=== PATIENT | female | born 1930 | race Caucasian/White ===

== ENCOUNTER 2016-08-20 14:44 | Inpatient (IN) | payer OTHER ==
[~2016-08-20] VITALS: Ht 160 cm; Wt 68.0 kg
[2016-08-20 14:49] VITALS: BP 206/84
[2016-08-20 15:33] LABS: HEMATOCRIT 38.6 % (37.0-47.0); MCH 32.6 pg (26.0-34.0); MCHC 33.7 % (28.0-37.0); PLATELET COUNT 139 thou/uL (150-400); RBC 3.98 mil/uL (4.20-5.00); RDW 13.2 % (10.5-14.5)
[2016-08-20 15:35] LABS: CREATININE 1.1 mg/dL (0.6-1.3); MANUAL DIFF YES; POTASSIUM 4.3 mmol/L (3.5-5.1)
[2016-08-20 15:41] LABS: ALBUMIN 3.4 g/dL (3.4-5.0); TOTAL BILIRUBIN 0.5 mg/dL (<0.1-1.0); TOTAL PROTEIN 6.9 g/dL (6.4-8.2)
[2016-08-20 15:56] LABS: ABSOLUTE NEUTROPHILS 3.1 thou/uL (1.4-8.2); TOTAL CELL COUNT 100
[2016-08-20] MEDS ORDERED: LISINOPRIL20 MG PO (16:03)
[2016-08-20] MEDS ORDERED: LOPRESSOR25 PO (16:03)
[2016-08-20] MEDS ORDERED: ASPIR 8181 MG PO (16:04)
[2016-08-20] MEDS ORDERED: ZOCOR20 MG PO (16:04)
[2016-08-20] MEDS ORDERED: PLAVIX 75 MG TA75 M1 PO (16:04)
[2016-08-20] MEDS ORDERED: FISH OIL 1,001000 M2 PO (16:05)
[2016-08-20] MEDS ORDERED: TUMS PO (16:05)
[2016-08-20] MEDS ORDERED: MULTI VITAMIN1 EACH PO (16:06)
[2016-08-20] MEDS ORDERED: LUTEIN40 MG PO (16:07)
[2016-08-20 16:08] LABS: URINE BILIRUBIN NEGATIVE (Negative); URINE BLOOD NEGATIVE (Negative); URINE COLOR YELLOW; URINE GLUCOSE-RANDOM* NEGATIVE (Negative); URINE KETONES NEGATIVE (Negative); URINE LEUKOCYTES-REFLEX NEGATIVE (Negative); URINE PROTEIN (DIPSTICK) NEGATIVE (Negative); URINE UROBILINOGEN 0.2 E.U./dl (0.2-1.0)
[2016-08-20] MEDS ORDERED: OXYBUTYNIN 5 MG5 M2 PO (16:08)
[2016-08-20] MEDS ORDERED: MIRALAX17 G1 PO (16:09)
[2016-08-20] MEDS ORDERED: MELATONIN3 MG PO (16:09)
[2016-08-20] MEDS ORDERED: SYSTANE 0.3-0.1 EACH OP (16:09)
[2016-08-20] MEDS ORDERED: VITAMIN E400 UNIT PO (16:29)
[2016-08-20 17:31] VITALS: BP 183/78
[2016-08-20 18:00] VITALS: BP 183/84
[2016-08-20 19:16] VITALS: BP 187/69
[2016-08-21 03:36] VITALS: BP 160/65
[2016-08-21 06:05] LABS: POTASSIUM 3.8 mmol/L (3.5-5.1)
[2016-08-21 06:15] LABS: HEMOGLOBIN 11.9 gm/dL (12.0-15.0); MCH 32.9 pg (26.0-34.0); MCHC 33.9 % (28.0-37.0); MCV 96.9 fL (80.0-100.0); RBC 3.61 mil/uL (4.20-5.00); RDW 13.1 % (10.5-14.5)
[2016-08-21 08:00] VITALS: BP 187/85
[2016-08-21 12:45] VITALS: BP 215/95
[2016-08-21 16:26] VITALS: BP 174/77
[2016-08-21 19:20] VITALS: BP 163/68
[2016-08-22 07:37] VITALS: BP 178/71
[2016-08-22] MEDS ORDERED: CIPRO500 MG PO (11:41)
[2016-08-22] MEDS ORDERED: FLAGYL500 MG PO (11:42)
[2016-08-22 12:44] VITALS: BP 178/71
[2016-08-22 12:54] VITALS: BP 178/71
[2016-08-22] MEDS ORDERED: NORVASC10 MG PO (13:37)
== END 2016-08-22 14:00 | disposition home or self-care (01) | DRG 392 ==
LOC: ER 14:44 → EROBS 16:40 → 4N 17:29
PROVIDERS: Emergency Medicine; Hospitalist
DX: K52.9 Noninfective gastroenteritis and colitis, unspecified (principal); N17.9 Acute kidney failure, unspecified; I10 Essential (primary) hypertension; Z96.653 Presence of artificial knee joint, bilateral; Z96.1 Presence of intraocular lens; E86.0 Dehydration; E78.5 Hyperlipidemia, unspecified; Z93.3 Colostomy status; Z98.890 Other specified postprocedural states
CPT/HCPCS: 10091

== ENCOUNTER 2016-08-23 11:06 | Emergency (ER) | payer OTHER ==
[~2016-08-23] VITALS: Ht 160 cm; Wt 68.0 kg
--- NOTE | ~2016-08-23 | EKG ---
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
[~2016-08-23 11:06] MED LIST: ASPIR 8181 MG PO; CIPRO500 MG PO; FISH OIL 1,001000 M2 PO; FLAGYL500 MG PO; LISINOPRIL20 MG PO; LOPRESSOR25 PO; LUTEIN40 MG PO; MELATONIN3 MG PO; MIRALAX17 G1 PO; MULTI VITAMIN1 EACH PO; NORVASC10 MG PO; OXYBUTYNIN 5 MG5 M2 PO; PLAVIX 75 MG TA75 M1 PO; SYSTANE 0.3-0.1 EACH OP; TUMS PO; VITAMIN E400 UNIT PO; ZOCOR20 MG PO
[2016-08-23 12:19] LABS: ABSOLUTE NEUTROPHILS 4.6 thou/uL (1.4-8.2); BASOPHILS 0.5 % (0.0-2.0); EOSINOPHILS 1.1 % (0.0-3.0); HEMATOCRIT 36.5 % (37.0-47.0); HEMOGLOBIN 12.5 gm/dL (12.0-15.0); LYMPHOCYTES 13.5 % (24.0-44.0); MCH 32.8 pg (26.0-34.0); MCHC 34.3 % (28.0-37.0); MCV 95.4 fL (80.0-100.0); MONOCYTES 8.8 % (1.0-8.0); PLATELET COUNT 170 thou/uL (150-400); POLYS 76.1 % (36.0-66.0); RBC 3.83 mil/uL (4.20-5.00); RDW 12.8 % (10.5-14.5); WBC 6.1 thou/uL (4.0-11.0)
[2016-08-23 12:26] LABS: ANION GAP 10 mmol/L (7-16); BUN 13 mg/dL (7-18); CALCIUM 8.3 mg/dL (8.5-10.1); CHLORIDE 105 mmol/L (98-107); CO2 27 mmol/L (21-32); CREATININE 1.4 mg/dL (0.6-1.3); GLUCOSE 166 mg/dL (70-99); POTASSIUM 3.3 mmol/L (3.5-5.1); SODIUM 142 mmol/L (136-145)
[2016-08-23 12:27] LABS: MANUAL DIFF NO
[2016-08-23 12:31] LABS: ALKALINE PHOSPHATASE 58 U/L (46-116); SGOT 34 U/L (15-37); SGPT 35 U/L (30-65); TOTAL BILIRUBIN 0.5 mg/dL (<0.1-1.0); TOTAL PROTEIN 6.1 g/dL (6.4-8.2); TROPONIN-I < 0.04 ng/mL (<0.04-0.07)
== END 2016-08-23 14:24 | disposition home or self-care (01) ==
LOC: ER 11:06
PROVIDERS: Emergency Medicine
DX: R55 Syncope and collapse (principal); E86.0 Dehydration; I10 Essential (primary) hypertension; Z87.19 Personal history of other diseases of the digestive system; Z98.890 Other specified postprocedural states

== ENCOUNTER 2017-02-20 14:01 | Emergency (ER) | payer OTHER ==
[~2017-02-20] VITALS: Ht 157.5 cm; Wt 71.2 kg
--- NOTE | ~2017-02-20 | EKG ---
[address] [place] [address] ELECTROCARDIOGRAM REPORT Name: DIANA BROWN Room #: DEP [facility]#: [id number] Admission: 02/20/17 Attend Phys: Discharge: 02/20/17 Date of : 31 Report #: [id number] THIS REPORT FOR: //name// [facility] ED Test Date: 2017-02-20 Test Time: 14:33:31 Pat Name: DIANA BROWN Department: Room: Gender: F Coo: CRYSTAL : 1930 Requested By: Art Vasquez Order Number: [id number] MD: Joshua Beach Measurements Intervals [place] Rate: 64 P: 44 CT: 193 QRS: -18 QRSD: 96 T: 52 QT: 413 QTc: 426 Interpretive Statements Sinus rhythm Borderline left axis deviation Compared to ECG 08/23/2016 11:19:19 Atrial premature complex(es) no longer present Electronically Signed On 02-21-2017 9:24:39 CDT by Joshua Beach [email or web address] <ELECTRONICALLY SIGNED> By: Joshua Beach MD, [facility] 02/21/17 0924 1433 1433 Joshua Beach MD, [facility] /EPI
[2017-02-20 14:59] LABS: HEMATOCRIT 35.9 % (37.0-47.0); HEMOGLOBIN 12.4 gm/dL (12.0-15.0); MCH 33.8 pg (26.0-34.0); MCHC 34.5 g/dL (28.0-37.0); RBC 3.66 mil/uL (4.20-5.00); RDW 13.1 % (10.5-14.5)
[2017-02-20 15:08] LABS: ANION GAP 6 mmol/L (7-16); BUN 31 mg/dL (7-18); CALCIUM 8.7 mg/dL (8.5-10.1); CHLORIDE 107 mmol/L (98-107); CO2 28 mmol/L (21-32); CREATININE 1.2 mg/dL (0.6-1.0); GLUCOSE 120 mg/dL (74-106); POTASSIUM 4.7 mmol/L (3.5-5.1); SODIUM 141 mmol/L (136-145)
[2017-02-20 15:16] LABS: TROPONIN-I < 0.04 ng/mL (<0.04-0.07)
[2017-02-20 15:20] LABS: APTT 22.6 Seconds (24.5-32.8); PROTIME 10.8 Seconds (9.3-11.4)
== END 2017-02-20 17:58 | disposition home or self-care (01) ==
LOC: ER 14:01
PROVIDERS: Emergency Medicine
DX: R42 Dizziness and giddiness (principal); R47.81 Slurred speech; I10 Essential (primary) hypertension; Z90.49 Acquired absence of other specified parts of digestive tract; Z96.653 Presence of artificial knee joint, bilateral

== ENCOUNTER 2019-01-13 11:28 | Emergency (ER) | payer OTHER ==
[~2019-01-13] VITALS: Ht 160 cm; Wt 70.3 kg
[2019-01-13 11:41] LABS: ABSOLUTE NEUTROPHILS 3.4 thou/uL (1.4-8.2); BASOPHILS 1.1 % (0.0-2.0); EOSINOPHILS 3.1 % (0.0-3.0); HEMATOCRIT 33.8 % (37.0-47.0); HEMOGLOBIN 11.6 gm/dL (12.0-15.0); LYMPHOCYTES 22.8 % (24.0-44.0); MCHC 34.4 g/dL (28.0-37.0); MCV 96.2 fL (80.0-100.0); MONOCYTES 8.9 % (1.0-8.0); PLATELET COUNT 161 thou/uL (150-400); POLYS 64.1 % (36.0-66.0); RBC 3.51 mil/uL (4.20-5.00); RDW 13.7 % (10.5-14.5); WBC 5.4 thou/uL (4.0-11.0)
[2019-01-13 11:45] LABS: URINE BILIRUBIN NEGATIVE (Negative); URINE BLOOD NEGATIVE (Negative); URINE CLARITY CLEAR; URINE COLOR YELLOW; URINE GLUCOSE-RANDOM* NEGATIVE (Negative); URINE KETONES NEGATIVE (Negative); URINE LEUKOCYTES TRACE (Negative); URINE NITRITE NEGATIVE (Negative); URINE PROTEIN (DIPSTICK) 2+ (Negative); URINE SPECIFIC GRAVITY 1.015 (1.005-1.035); URINE UROBILINOGEN 0.2 E.U./dl (0.2-1.0)
[2019-01-13 11:46] LABS: CALCIUM 9.3 mg/dL (8.5-10.1); CREATININE 1.4 mg/dL (0.6-1.0); POTASSIUM 4.4 mmol/L (3.5-5.1)
[2019-01-13 11:52] LABS: ALBUMIN 3.5 g/dL (3.4-5.0); TOTAL BILIRUBIN 0.5 mg/dL (<0.1-1.0); TOTAL PROTEIN 6.4 g/dL (6.4-8.2)
[2019-01-13 11:57] LABS: HYALINE CASTS 0-3 Few /LPF (None Seen)
[2019-01-13 11:58] LABS: AMORPHOUS URATES Few /LPF (None Seen); SQUAMOUS None Seen /LPF (0-3); URINE RBC 3-10 Few /HPF (0-2)
[2019-01-13 11:59] LABS: BACTERIA 1-9 Few /HPF (None Seen); URINE WBC 0-5 Rare /HPF (0-5)
[2019-01-13 15:25] VITALS: BP 140/77
--- NOTE | 2019-01-15 08:38 | EKG ---
[address] [address] ELECTROCARDIOGRAM REPORT Name: STEPHANIEDIANA Paulette Room #: DEP [facility]#: [id number] ������������������ Admission: 01/13/19 ������������������ Attend Phys: Discharge: 01/13/19 ������������������ Date of : 31 Report #: [id number] ����������������������������������������������������������������� [id number] THIS REPORT FOR: //name// [facility] ED Test Date: 2019-01-13 Test Time: 11:33:00 Pat Name: DIANA BROWN Department: Room: Gender: F [employer]: WG : 1930 Requested By: Fatimah Gonsalves Order Number: [id number] MD: Lex Zapata Measurements Intervals [place] Rate: 60 P: -23 NM: 207 QRS: -24 QRSD: 85 T: 43 QT: 409 QTc: 409 Interpretive Statements Sinus rhythm Left ventricular hypertrophy Compared to ECG 02/20/2017 14:33:31 Left ventricular hypertrophy now present Electronically Signed On 01-15-2019 8:38:14 CDT by Lex Zapata [email or web address] ��������������������������������������������� <ELECTRONICALLY SIGNED> ���������������������������������������� By: Lex Zapata MD ��������������������������������������������� 01/15/19 0838 113 113 Lex Zapata MD /JOSE
== END 2019-01-13 15:25 | disposition home or self-care (01) ==
LOC: ER 11:28
PROVIDERS: Emergency Medicine
DX: I95.1 Orthostatic hypotension (principal); I10 Essential (primary) hypertension; Z90.49 Acquired absence of other specified parts of digestive tract; Z96.653 Presence of artificial knee joint, bilateral

== ENCOUNTER 2019-04-15 12:48 | Inpatient (IN) | payer OTHER ==
[~2019-04-15] VITALS: Ht 162.6 cm; Wt 68.7 kg
--- NOTE | ~2019-04-15 | EMS ---
[facility] [address] [place] [address] EMS Patient Care Report Name: DIANA BROWN Room #: PRE M.R.#: [id number] Admission: Attend Phys: Discharge: Date of : 31 Report #: [id number] THIS REPORT FOR: //name// Report Transmitted: 04/15/2019 12:34 EMS Care Summary [facility] MED-ACT Incident [id number] @ 04/15/2019 12:08 Incident Location [address] [place] [address] Patient DIANA BROWN Female, 89 Years 1930 Patient Address [address] [place] [address] Patient History Other,Dementia,Hypertension,Hyperlipidemia, Patient Allergies No known allergies, Patient Medications Simvastatin, Hydroxyzine, Oxybutynin, Plavix, Meloxicam, Lisinopril, Melatonin, Metoprolol, Chief Complaint "My legs gave out on me" Disposition Transported No Lights/[place] Dispatch Reason Stroke/CVA Transported To [facility] Narrative Patient's daughter reports that she and the patient had just returned from picking up a pizza for lunch and were trying to get back into the house from the car in the garage. Patient's daughter and the patient report that the [facility] [address] [place] [address] EMS Patient Care Report Name: DIANA BROWN Room #: PRE [place]#: [id number] Admission: Attend Phys: Discharge: Date of : 31 Report #: [id number] patient has been undergoing physical therapy for the last 3-4 weeks to gain strength and deal with balance issues. Patient's daughter reports she was helping the patient up the 3 steps from the garage into the house when the patient suddenly c/o weakness in her legs. Patient's daughter reports that the patient's legs gave out and the daughter attempted to lower the patient down to the ground. Both the patient and the daughter denied that the patient had an LOC. The patient reports that she bumped her mouth on the floor and c/o 2/10 upper lip pain. The patient's daughter reports that the patient has been on Plavix for 15 years "...because they thought the patient had a stroke but found no evidence of a stroke on the CT scan". The patient denied headache, dizziness, vision changes, neck and back pain, numbness/tingling to her extremities, chest pain/pressure/discomfort, difficulty breathing, nausea/vomiting/diarrhea, urinary or bowel issues and blood in her urine or stool. The patient's daughter requested ambulance transport for the patient to [facility] ER for further evaluation. Found this 89 y/o female patient lying prone on the floor in the doorway between the dining room and kitchen. The patient's head was resting on her hands on a pillow. The patient was a/o x 3. GCS 14 (confusion normal for patient per the patient's daughter). The patient's skin was warm, dry and slightly pale. Patient's radial pulse was strong and regular. No obvious deformities, crepitus or tenderness were palpated to the patient's head, neck or back. The patient was assisted in rolling over onto her left side and sitting upright on the floor. M1134 assisted the patient up to a sitting position on the floor, then a standing position, and then to a chair. Patient's upper lip was swollen and bruised on the left side. No slurred speech or facial droop noted. Patient was noted to have blood in her mouth. Patient's teeth were intact. Patient had weak but equal target trimmer strength. Negative arm drift. Sinus Rhythm on the monitor. The patient was assisted to a standing position and helped to walk around the dining room table to the stretcher. Patient was placed in a semi-fowlers position, secured with seat belts and moved to the MICU. Patient's bG was 96mg/dL via finger stick. No ST changes noted on the patient's 12 lead. Monitored the patient's vitals and ECG. No changes noted en route to [facility]. Upon arrival at [facility], the patient was taken to ER #2 and moved via draw sheet to the ER bed by M1134 and staff. Report and paperwork TOT staff at the patient's bedside. Initial Vitals @12:37P: 66,R: 18,Pain: 2/10,SpO2: 100, @12:19BP: 246/110,Pain: 2/10,GCS: 14, @12:28P: 68,R: 18,BP: 203/107,Pain: 2/10,GCS: 14,Glucose: 96,Revised Trauma: 12,DC Suspected: false @12:16P: 71,R: 16,BP: 248/111,Pain: 2/10,GCS: 14,SpO2: 96,Revised Trauma: 12, @12:18P: 67,R: 18,BP: 248/111,Pain: 2/10,GCS: 14,Revised Trauma: 12,[facility] [address] [place] [address] EMS Patient Care Report Name: DIANA BROWN Room #: PRE [place].#: [id number] Admission: Attend Phys: Discharge: Date of : 31 Report #: [id number] Suspected: false @12:31P: 68,R: 18,Pain: 2/10,GCS: 15,SpO2: 100,DC Suspected: false @12:42P: 67,R: 18,BP: 200/105,Pain: 2/10,GCS: 15,SpO2: 100,Revised Trauma: 12, Assessments @12:14MENTAL:Person Oriented,Time Oriented,Place Oriented,SKIN:Pale,HEENT:Head/Face: Swelling,Neck/Airway: No Abnormalities,LUNG SOUNDS:ABDOMEN:PELVIS//GI:No Abnormalities,EXTREMITIES:Capillary Refill: Left Upper: < 2 Sec,Left Arm: No Abnormalities,Right Arm: No Abnormalities,Left Leg: No Abnormalities,Right Leg: No Abnormalities,PULSE:Radial: 2+ Normal,NEURO:Weakness Right-Sided,Weakness Left-Sided, Impression Generalized Weakness Procedures @12:3112-Lead ECGResponse: UnchangedSucceeded Timeline 12:08,Call Received 12:08,Psap Call 12:08,Dispatched 12:09,En Route 12:12,On Scene 12:13,At Patient 12:16,BP: 248/111 M,PULSE: 71,RR: 16 R,SPO2: 96 Ox,ETCO2: ,BG: ,PAIN: 2,GCS: 14, 12:18,BP: 248/111 M,PULSE: 67,RR: 18 R,SPO2: Ox,ETCO2: ,BG: ,PAIN: 2,GCS: 14, 12:19,BP: 246/110 M,PULSE: ,RR: R,SPO2: Ox,ETCO2: ,BG: ,PAIN: 2,GCS: 14, 12:28,BP: 203/107 M,PULSE: 68,RR: 18 R,SPO2: Ox,ETCO2: ,B,PAIN: 2,GCS: 14, 12:31,12-Lead ECG,Response: UnchangedSucceeded, 12:31,BP: / M,PULSE: 68,RR: 18 R,SPO2: 100 Ox,ETCO2: ,BG: ,PAIN: 2,GCS: 15, 12:36,Depart Scene 12:37,BP: / M,PULSE: 66,RR: 18 R,SPO2: 100 Ox,ETCO2: ,BG: ,PAIN: 2,GCS: , 12:42,BP: 200/105 M,PULSE: 67,RR: 18 R,SPO2: 100 Ox,ETCO2: ,BG: ,PAIN: 2,GCS: 15, 12:44,At Destination 13:35,Call Closed Disclaimer v1.1 Copyright 2019 [employer] This EMS Care Summary contains data elements from the applicable legal record (which may be displayed differently). It is designed to provide pertinent information for the following purposes: continuity of care, clinical quality, and state data reporting. The complete legal record is available to ED staff [address] [address] EMS Patient Care Report Name: DIANA BROWN Paulette Room #: PRE [facility].R.#: [id number] Admission: Attend Phys: Discharge: Date of : 31 Report #: [id number] and administrators of the receiving hospital in [facility]'s Patient Tracker. All data is provided "as is."
[2019-04-15 12:50] VITALS: BP 192/88
[2019-04-15 13:24] LABS: URINE BILIRUBIN NEGATIVE (Negative); URINE BLOOD NEGATIVE (Negative); URINE CLARITY CLEAR; URINE COLOR YELLOW; URINE GLUCOSE-RANDOM* NEGATIVE (Negative); URINE KETONES NEGATIVE (Negative); URINE LEUKOCYTES-REFLEX NEGATIVE (Negative); URINE NITRITE-REFLEX NEGATIVE (Negative); URINE PROTEIN (DIPSTICK) NEGATIVE (Negative); URINE UROBILINOGEN 0.2 E.U./dl (0.2-1.0)
[2019-04-15 13:26] LABS: ABSOLUTE NEUTROPHILS 5.9 thou/uL (1.4-8.2); BASOPHILS 0.6 % (0.0-2.0); EOSINOPHILS 2.6 % (0.0-3.0); HEMATOCRIT 32.5 % (37.0-47.0); HEMOGLOBIN 11.1 gm/dL (12.0-15.0); LYMPHOCYTES 14.8 % (24.0-44.0); MCH 33.8 pg (26.0-34.0); MCHC 34.1 g/dL (28.0-37.0); MCV 99.1 fL (80.0-100.0); MONOCYTES 7.9 % (1.0-8.0); PLATELET COUNT 193 thou/uL (150-400); POLYS 74.1 % (36.0-66.0); RBC 3.28 mil/uL (4.20-5.00); RDW 14.1 % (10.5-14.5)
[2019-04-15 13:33] LABS: ANION GAP 9 mmol/L (7-16); BUN 35 mg/dL (7-18); CALCIUM 8.9 mg/dL (8.5-10.1); CHLORIDE 101 mmol/L (98-107); CO2 26 mmol/L (21-32); CREATININE 1.3 mg/dL (0.6-1.0); GLUCOSE 100 mg/dL (74-106); POTASSIUM 4.6 mmol/L (3.5-5.1); SODIUM 136 mmol/L (136-145)
[2019-04-15 13:43] LABS: ALBUMIN 3.5 g/dL (3.4-5.0); DIRECT BILIRUBIN < 0.1 mg/dL (<0.1-0.3); SGOT 22 U/L (15-37); SGPT 23 U/L (30-65); TOTAL BILIRUBIN 0.5 mg/dL (<0.1-1.0); TOTAL PROTEIN 6.6 g/dL (6.4-8.2); TROPONIN-I <0.06 ng/mL (<0.06)
[2019-04-15 14:56] VITALS: BP 167/62
[2019-04-15 15:12] VITALS: BP 160/76
[2019-04-15 16:00] VITALS: BP 182/69
[2019-04-15 19:38] VITALS: BP 197/76
[2019-04-15 23:44] VITALS: BP 192/82
[2019-04-16] VITALS (8 sets, daily range): BP systolic 141–184; BP diastolic 61–87
--- NOTE | 2019-04-16 01:12 | NUR ---
ASSUMED PT CARE 1899. PT ALERT AND ORIENTED, CAN BE FORGETFUIL. RESASSESSMENT COMPLETE. BLOOD PRESSURE ELEVATED, SEE EMAR. ALL OTHER VSS. DENIES PAIN. DENIES N/V. CALL LIGHT AND PERSONAL BELONIGNS WITHIN REACH, WILL CONTINUE POC UTNIL EOS.
[2019-04-16 05:34] LABS: HEMATOCRIT 28.4 % (37.0-47.0); HEMOGLOBIN 9.8 gm/dL (12.0-15.0); MCH 33.7 pg (26.0-34.0); MCHC 34.7 g/dL (28.0-37.0); MCV 97.2 fL (80.0-100.0); RBC 2.93 mil/uL (4.20-5.00); RDW 14.6 % (10.5-14.5); WBC 6.1 thou/uL (4.0-11.0)
[2019-04-16 05:52] LABS: CALCIUM 8.7 mg/dL (8.5-10.1); CREATININE 1.1 mg/dL (0.6-1.0); POTASSIUM 4.6 mmol/L (3.5-5.1)
[2019-04-16 09:59] LABS: TSH 3.111 uIU/mL (0.358-3.740)
--- NOTE | 2019-04-16 20:23 | NUR ---
care of pt assumed this am @ ~0700. pt noted to be awake, happy and engaging w/ staff today. pt aox4, but forgetful. pt a fall risk and aware of (compliant w/) need to call staff for assistance to chair, bsc and ambulation. pt w/ a balanced, coordinated and unsteady gait. pt w/ a fair to goo appetite for food and fluid today. ivf's infusing to a positional iv access to the lt ac, redressed and resecured several times today. pt voiding per bsc. pt had placement of a loop recorder by dr. iglesias today, betty to lt of midsternum, small 2x2 gauze w/ faint sanguanious drainage covered w/ a opsite. st judes to come educate pt and her daughter/Darby tomorrow regard device. pt was up in her chair for most of the day watching tv, visiting w/ her daughter and sleeping.
[2019-04-17 03:54] VITALS: BP 168/69
--- NOTE | 2019-04-17 04:15 | NUR ---
Pt. able to answer orientation questions though she has periods of being forgetful. Denies any pain. She stated she has intermittent tingling and weakness on her lower extremities. Bed alarm on for safety. She calls appropriately for assistance. Assisted up to commode using walker and gait belt. Left AC IV infiltrated ,dc'd and placed a new one on right FA. Will continue to monitor.
[2019-04-17 07:53] VITALS: BP 197/87
--- NOTE | 2019-04-17 09:05 | EKG ---
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
--- NOTE | 2019-04-17 13:38 | LINQ ---
[facility] [address] [place] [address] MyPronosticQ PROCEDURE REPORT Name: DIANA BROWN Paulette Room #: 363-P [facility] IN ..#: [id number] Admission: 04/15/19 Attend Phys: Gil Knott MD Discharge: Date of : 31 Date of Service: 04/17/19 1338 Report #: [id number] THIS REPORT FOR: //name// APPROVED REPORT Study performed: 04/17/2019 08:19:28 Patient Status: In-Patient Room #: Event Personnel: MD Esther Kennedy RN Exam: Loop Recorder Implant Indications: 89-year-old female with recurrent near-syncope Implanted Devices: [employer]: Device-CONFIRM Rx; Reference #[id number]; SN: [id number]; Use by 2020-08-25 Procedure The patient underwent informed consent. We discussed the details of the procedure including the risks, which include, but not limited to bleeding, infection, vascular damage, cardiac perforation, and pneumothorax. The patient's chest was prepped and draped in usual sterile manner. Utilizing 1% lidocaine the incision site was then anesthetized as well as a deployment track underneath the skin. Utilizing the enclosed tool small skin make was performed and using sharp and blunt dissection a pocket was generated. The device was then inserted and deployed percent of protocol. Subcutaneous tissue was then sewn with a simple interrupted suture over the entry point. The skin was sutured with a 30 absorbable suture in a subcuticular stitch. Steri-Strips 4 x [address] Patient had a procedure well. Complications The patient tolerated the procedure well and there were no complications associated with the procedure. Findings Specimens Removed: No Estimated Blood Loss: 0 Conclusion 1. Successful deployment of a [employer] implantable loop recorder [address] [address] LINQ PROCEDURE REPORT Name: DIANA BROWN Room #: 363-P [facility] IN .#: [id number] Admission: 04/15/19 Attend Phys: Gil Knott MD Discharge: Date of : 31 Date of Service: 04/17/19 1338 Report #: [id number] Recommendations 1. Will proceed per standard post insertion protocol and monitoring <ELECTRONICALLY SIGNED> By: Toni John MD 04/17/19 1338 37 Toni John MD /INF
--- NOTE | 2019-04-17 14:03 | NUR ---
dp faxed snf referral to [facility] and to [facility], dp spoke with Teresa at [facility] and she is coming up to hospital soon, dp left message with Nicolasa at [facility]. Patient to dc tomorrow.
[2019-04-17 14:38] VITALS: BP 156/68
--- NOTE | 2019-04-17 14:48 | NUR ---
INITIAL ASSESSMENT: SW reviewed chart and opened case due to length of stay. Pt was admitted from home due to weakness. Recommendation made for pt to go to post-acute for continued rehab services and medical mgmt. JOSEPH met [facility] pt and dtr, Darby, at bedside. Introduced role of JOSEPH. Pt is alert/orientated x 4 and normally lives at home. Prior to admission, pt was using a walker to assist with ambulation. No hx of services. Pt has been to [facility] in the past. SW provided SNF list. Pt and dtr requests referrals to be sent to [facility] and [facility] SNF. Pt and dtr are agreeable with either facility. Discharge is anticipated in 1-2 days. Pt and dtr are aware of anticipated discharge timeframe. Pt's PCP is Dr. Alvarado. vacation planner to fax SNF referrals. SW is following to assist as needed with discharge planning.
--- NOTE | 2019-04-17 17:55 | NUR ---
PT WALKING TO TOILET WITH MOD ASSIST...SEEMS STRONGER...ENCOURAGED AMBULATION..
[2019-04-17 19:27] VITALS: BP 160/75
[2019-04-18 03:30] VITALS: BP 171/77
--- NOTE | 2019-04-18 03:43 | NUR ---
PATIENT IS ALERT AND ORIENTED. PATIENT IS ON ROOM AIR. PATIENTS LBM WAS THE 3RD. PATIENT IS NSR ON TELE. PATIENT IS SBA TO BATHROOM. PATIENT DENIES PAIN. PATEINT HAD LOOPRECORDER IMPLANTED YESTERDAY. PATIENT IS PENIDNG DISCHARGE TODAY. PATIENT IS RESTING COMFORTABLY IN BED. WCM. PATIENT IS PROGRESSING TO GOALS.
[2019-04-18 07:40] VITALS: BP 193/85
[2019-04-18 09:07] LABS: HEMATOCRIT 28.7 % (37.0-47.0); HEMOGLOBIN 9.8 gm/dL (12.0-15.0); MCH 33.9 pg (26.0-34.0); MCHC 34.2 g/dL (28.0-37.0); RBC 2.9 mil/uL (4.20-5.00); RDW 14.5 % (10.5-14.5); WBC 6.2 thou/uL (4.0-11.0)
[2019-04-18 09:11] LABS: CALCIUM 8.6 mg/dL (8.5-10.1); CREATININE 1.3 mg/dL (0.6-1.0); MAGNESIUM 2.2 mg/dL (1.8-2.4); POTASSIUM 4.2 mmol/L (3.5-5.1)
--- NOTE | 2019-04-18 11:37 | NUR ---
dp informed Nicolasa at [facility] to disregard referral as patient is going elswhere.
[2019-04-18 11:38] VITALS: BP 123/58
[2019-04-18] MEDS ORDERED: HYDRALAZINE 2525 MG PO (13:08)
--- NOTE | 2019-04-18 13:58 | NUR ---
DISCHARGE NOTE: SW reviewed chart and spoke with nursing and attending physician. Pt is medically stable for discharge to post-acute today. [facility] is able to accept pt. [facility] liaison spoke with pt's dtr via phone, who is agreeable with plan. SW met with pt at bedside to discuss discharge. Pt is aware and is in agreement. JOSEPH faxed discharge orders/summary to [facility] SNF and notified liaison. Wheelchair van transportation scheduled for 1500 per SNF's arrangements. Chart copy requested. funeral planner to notify pt's dtr of transportation time. No additional SW needs identified at this time, but is available to assist should needs arise.
--- NOTE | 2019-04-18 15:08 | NUR ---
ASSUMED PATIENT CARE AT 0700. A/O X4. UP AMBULATED IN ROOM WITH STB. DENIES PAIN. PROGRESSSING TOWARDS POC GOALS, DC TO SNF NOW.
[2019-04-19 15:07] LABS: GLOBULIN TOTAL 2.1 g/dL (2.2-3.9); M-SPIKE 0.1 g/dL (Not Observed)
== END 2019-04-18 15:26 | DRG 262 ==
LOC: ER 12:48 → EROBS 14:17 → 3W 14:17
PROVIDERS: Emergency Medicine; Internal Medicine; Psychiatry & Neurology Neurology; ADMIT Hospitalist
PROC: 0JH602Z Insertion of Monitoring Device into Chest Subcutaneous Tissue and Fascia, Open Approach (ICD-10-PCS; principal; 2019-04-17)
DX: I49.9 Cardiac arrhythmia, unspecified (principal); I10 Essential (primary) hypertension; E78.5 Hyperlipidemia, unspecified; Z96.653 Presence of artificial knee joint, bilateral; Z96.1 Presence of intraocular lens; S60.222A Contusion of left hand, initial encounter; S60.221A Contusion of right hand, initial encounter; N32.81 Overactive bladder; S00.93XA Contusion of unspecified part of head, initial encounter; W18.30XA Fall on same level, unspecified, initial encounter; K59.00 Constipation, unspecified; G47.00 Insomnia, unspecified; Z79.899 Other long term (current) drug therapy; Z79.82 Long term (current) use of aspirin; Z90.89 Acquired absence of other organs; Z93.3 Colostomy status; Y93.89 Activity, other specified; Y99.8 Other external cause status; Y92.094 Garage of other non-institutional residence as the place of occurrence of the external cause
CPT/HCPCS: 10879

== ENCOUNTER → 2019-05-22 | Outpatient (CLI) | payer OTHER ==
[~2019-05-22] MED LIST changes: +HYDRALAZINE 2525 MG PO
== END ==
LOC: CAT 07:49 → OCCUP 14:07 → CAT 14:09
DX: R30.0 Dysuria (principal); J34.2 Deviated nasal septum; I70.0 Atherosclerosis of aorta

== ENCOUNTER → 2020-03-03 | Outpatient (CLI) | payer OTHER | LOC: SJCVC 13:51 | PROVIDERS: ATTEND Internal Medicine | DX: R00.1 Bradycardia, unspecified (principal); I48.0 Paroxysmal atrial fibrillation; I10 Essential (primary) hypertension; E78.5 Hyperlipidemia, unspecified; Z86.73 Personal history of transient ischemic attack (TIA), and cerebral infarction without residual deficits; Z79.899 Other long term (current) drug therapy; Z82.49 Family history of ischemic heart disease and other diseases of the circulatory system ==

== ENCOUNTER 2020-08-08 16:23 | Emergency (ER) | payer OTHER ==
[~2020-08-08] VITALS: Ht 165.1 cm; Wt 74.8 kg
--- NOTE | ~2020-08-08 | EMS ---
[facility] [address] [place] [address] EMS Patient Care Report Name: DIANA BROWN Room #: REG [place]#: [id number] Admission: 08/08/20 Attend Phys: Discharge: Date of : 31 Report #: [id number] THIS REPORT FOR: //name// Report Transmitted: 08/08/2020 16:03 EMS Care Summary [facility] MED-ACT Incident [id number] @ 08/08/2020 15:52 Incident Location [address] [place] [address] Patient DIANA BROWN Female, 89 Years 1930 Patient Address [address] [place] [address] Patient History Hypertension (HTN),Pacemaker/AICD,Atrial Fibrillation, Patient Allergies No known allergies, Patient Medications Simvastatin, Metoprolol, Xarelto, Tylenol, Amiodarone, Irbesartan, Chief Complaint headache / not responding Disposition Transported No Lights/[place] Dispatch Reason Headache Transported To [facility] Narrative Pt is found laying generally supine in bed with family at side. Pt is in back bedroom with narrow a hallway and corners leading to pt. Pts family states approx 5-10 min prior to calling 911, pt c/o a sudden onset of a headache that started at the top of her head and radiated down the back of her head. Pts [address] [address] EMS Patient Care Report Name: DIANA BROWN Room #: REG [facility]#: [id number] Admission: 08/08/20 Attend Phys: Discharge: Date of : 31 Report #: [id number] family states they then took pt to her bedroom and placed her in bed prior to calling 911. Pts family states pt is normally AOx4. Pts family states pt has a hx of HTN and takes blood thinners. Pts family states pt was recently taken off her lisinopril Rx and placed on Irbesartan. Pts family states pt was also recently placed on amiodarone and recently had a pacemaker placed due to afib. On EMS arrival, pt will not communicate with EMS - pt will only open her eyes whenever her name was called, but would not speak. Pt would also not follow any of the commands to do a stroke scale. Pts family states pt has not expressed any further complaints/discomfort. Tx= VS, eJ=012, EKG/12lead-NSR, pt carried from bed to cot via tarp and secured without incident. En route= VS, BP timed out several times during transport, and pt kept her arms in a contracted position when BP cuff. During transport pt appeared to wretch like she was going to vomit - suction pts mouth x1 with no contents suctioned out, IV not established due to vasculature and arrival at hospital. During transport pt will continue to only open her eyes and look around when her name was called - pt would not follow any further commands - due to this stroke scale could not be completed Initial Vitals @16:01P: 74,R: 16,GCS: 5,SpO2: 100, @16:00P: 93,R: 16,BP: 108/71,Pain: 0/10,GCS: 5,Temp: 97.5F,Glucose: 117,SpO2: 100,Revised Trauma: 9, @16:04P: 66,R: 16,BP: 222/141,GCS: 5,SpO2: 100,Revised Trauma: 9, @16:17P: 68,R: 16,BP: 250/104,GCS: 5,SpO2: 98,Revised Trauma: 9, @16:03P: 66,R: 16,GCS: 5,SpO2: 100, Assessments @16:11MENTAL:Unresponsive,SKIN:HEENT:LUNG SOUNDS:ABDOMEN:PELVIS//GI:No Abnormalities,EXTREMITIES:Left Arm: No Abnormalities,Right Arm: No Abnormalities,Left Leg: No Abnormalities,Right Leg: No Abnormalities,PULSE:NEURO: Impression Stroke Procedures @16:15Surgical Mask on PatientResponse: Unchanged@16:0312-Lead ECG@16:11Suction Response: UnchangedSucceeded Timeline 15:51,Call Received 15:51,Psap Call 15:52,Dispatched 15:53,En Route 15:58,On Scene [address] [address] EMS Patient Care Report Name: BROWN,DIANA Caldwell Room #: REG [facility]#: [id number] Admission: 08/08/20 Attend Phys: Discharge: Date of : 31 Report #: [id number] 15:59,At Patient 16:00,BP: 108/71 M,PULSE: 93,RR: 16 R,SPO2: 100 Ox,ETCO2: ,B,PAIN: 0,GCS: 5, 16:01,BP: / M,PULSE: 74,RR: 16 R,SPO2: 100 Ox,ETCO2: ,BG: ,PAIN: ,GCS: 5, 16:03,12-Lead ECG, 16:03,BP: / M,PULSE: 66,RR: 16 R,SPO2: 100 Ox,ETCO2: ,BG: ,PAIN: ,GCS: 5, 16:04,BP: 222/141 M,PULSE: 66,RR: 16 R,SPO2: 100 Ox,ETCO2: ,BG: ,PAIN: ,GCS: 5, 16:09,Depart Scene 16:11,Suction Response: UnchangedSucceeded, 16:15,Surgical Mask on Patient,Response: Unchanged 16:17,BP: 250/104 M,PULSE: 68,RR: 16 R,SPO2: 98 Ox,ETCO2: ,BG: ,PAIN: ,GCS: 5, 16:18,At Destination 16:41,Call Closed Disclaimer v1.1 Copyright 2020 [employer] This EMS Care Summary contains data elements from the applicable legal record (which may be displayed differently). It is designed to provide pertinent information for the following purposes: continuity of care, clinical quality, and state data reporting. The complete legal record is available to ED staff and administrators of the receiving hospital in [employer]'s Patient Tracker. All data is provided "as is."
[2020-08-08 16:24] VITALS: BP 259/153
[2020-08-08 16:35] LABS: ABSOLUTE NEUTROPHILS 4.9 thou/uL (1.4-8.2); BASOPHILS 1.2 % (0.0-2.0); EOSINOPHILS 2.5 % (0.0-3.0); HEMATOCRIT 37.7 % (37.0-47.0); HEMOGLOBIN 12.5 gm/dL (12.0-15.0); LYMPHOCYTES 37.1 % (24.0-44.0); MCH 34.3 pg (26.0-34.0); MCHC 33.2 g/dL (28.0-37.0); MCV 103.4 fL (80.0-100.0); MONOCYTES 9.2 % (1.0-8.0); PLATELET COUNT 192 thou/uL (150-400); RBC 3.64 mil/uL (4.20-5.00); RDW 13.5 % (10.5-14.5); WBC 9.7 thou/uL (4.0-11.0)
[2020-08-08 16:46] LABS: ANION GAP 15 mmol/L (7-16); BUN 29 mg/dL (7-18); CALCIUM 9.4 mg/dL (8.5-10.1); CHLORIDE 100 mmol/L (98-107); CO2 23 mmol/L (21-32); CREATININE 1.3 mg/dL (0.6-1.0); GLUCOSE 128 mg/dL (74-106); POTASSIUM 4.2 mmol/L (3.5-5.1); SODIUM 138 mmol/L (136-145)
[2020-08-08 16:49] LABS: APTT 26.1 Seconds (24.5-32.8); INR 1.3; PROTIME 13.4 Seconds (9.3-11.4)
[2020-08-08 16:53] LABS: ALBUMIN 3.6 g/dL (3.4-5.0); SGOT 35 U/L (15-37); SGPT 48 U/L (14-59); TOTAL BILIRUBIN 0.5 mg/dL (0.2-1.0); TOTAL PROTEIN 6.8 g/dL (6.4-8.2); TROPONIN-I <0.06 ng/mL (<0.06)
--- NOTE | 2020-08-09 11:17 | EKG ---
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: : 1930 Requested By: Jeyson Kirkland Order Number: [id number] MD: Brian Pickett Measurements Intervals [place] Rate: 73 P: 39 ME: 199 QRS: -8 QRSD: 88 T: 72 QT: 412 QTc: 454 Interpretive Statements Atrial-paced complexes Ventricular premature complex Probable LVH with secondary repol abnrm Baseline wander in lead(s) V3 Compared to ECG 04/15/2019 13:02:50 Ventricular premature complex(es) now present Sinus rhythm no longer present Electronically Signed On 08-09-2020 11:17:16 [employer] WATER METER INSTALLER by Brian Pickett [email or web address] <ELECTRONICALLY SIGNED> By: Brian Pickett MD, FAC 08/09/20 1117 1650 Brian Pickett MD, [facility] /EPI
== END 2020-08-08 18:35 ==
LOC: ER 16:23
PROVIDERS: Emergency Medicine
DX: I60.9 Nontraumatic subarachnoid hemorrhage, unspecified (principal); I10 Essential (primary) hypertension; G43.909 Migraine, unspecified, not intractable, without status migrainosus; Z90.49 Acquired absence of other specified parts of digestive tract; Z96.653 Presence of artificial knee joint, bilateral; Z79.899 Other long term (current) drug therapy; Z79.82 Long term (current) use of aspirin